=== PATIENT | female | born 1970 | race Caucasian/White ===

== ENCOUNTER → 2017-01-14 | Day surgery (SDC) | payer OTHER ==
[~2017-01-14] MED LIST: LACTATED RINGER'S 1000 ML INJ 1,000 ML ONE; LEVO50TA4 PO; LEVO75TA3 PO; PROM1SUP7 RECTAL; PROPOFOL 200 MG/20 ML AMP IV ONE
--- NOTE | 2017-01-14 07:58 | GIPROC ---
[facility] [address] [facility], [id number] EGD PROCEDURE REPORT EXAM DATE: 01/14/2017 PATIENT NAME: Josie Workman MR #: [id number] BIRTHDATE: 1970 ATTENDING: Alvaro Dos Santos MD ORDER #: [id number] [employer] MATERIAL INSPECTOR: none STATUS: outpatient INDICATIONS: The patient is a 46 yr old female here for an EGD due to heartburn PROCEDURE PERFORMED: EGD w/ biopsy MEDICATIONS: None and Per Anesthesia. TOPICAL ANESTHETIC: none CONSENT: The patient understands the risks and benefits of the procedure and understands that these risks include, but are not limited to: sedation, allergic reaction, infection, perforation and/or bleeding. Alternative means of evaluation and treatment include, among others: physical exam, x-rays, and/or surgical intervention. The patient elects to proceed with this endoscopic procedure. medical equipment was checked for proper function. Hand hygiene and appropriate measures for infection prevention was taken. After the risks, benefits and alternatives of the procedure were thoroughly explained, Informed consent was verified, confirmed and timeout was successfully executed by the treatment team. The patient was anesthetized with topical anesthesia and the EG-[id number] ([id number]) endoscope was introduced through the mouth and advanced to the second portion of the duodenum. Retroflexed views revealed small hiatal hernia and Retroflexed views revealed The gastroscope was then slowly withdrawn and removed. Mild esoghagitis, small hiatal hernia. Small hiatal hernia. Esophagitis. ADVERSE EVENTS: There were no complications. IMPRESSIONS: 1. Mild esoghagitis, small hiatal hernia 2. Small hiatal hernia RECOMMENDATIONS: Start PPI PATIENT CONDITION: fair DISPOSITION: Home REPEAT EXAM: NONE Alvaro Dos Santos MD eSigned: Alvaro Dos Santos MD 01/14/2017 7:57 AM cc: Ahmet Hinson M.D.
== END | disposition home or self-care (01) ==
LOC: ESDC 06:55
PROVIDERS: ATTEND Surgery
DX: R12 Heartburn (principal); K20.9 Esophagitis, unspecified; K44.9 Diaphragmatic hernia without obstruction or gangrene
CPT/HCPCS: 00740; 43239; 88305; 88312; J3010; J7120

== ENCOUNTER 2017-03-26 13:10 | Inpatient (IN) | payer OTHER ==
[~2017-03-26] VITALS: Ht 160 cm; Wt 105.0 kg
[~2017-03-26 13:10] MED LIST changes: -LACTATED RINGER'S 1000 ML INJ 1,000 ML ONE; -LEVO50TA4 PO; -PROM1SUP7 RECTAL; -PROPOFOL 200 MG/20 ML AMP IV ONE
[2017-03-29] MEDS ORDERED: APREPITANT 40 MG CAP PO SCH (05:45)
[2017-03-29] MEDS ORDERED: METOPROLOL TARTRATE 25 MG TAB PO PRN (05:45)
[2017-03-29] MEDS ORDERED: LACTATED RINGER'S 1000 ML IV PRN (05:45)
[2017-03-29] MEDS ORDERED: ceFAZolin 2 GM PREMIX 50 ML IV SCH (05:45)
[2017-03-29] MEDS ORDERED: CHLORHEXIDINE GLUCONATE 2 % 1 PACK (2 CLOTHS) TOPICAL PRN (05:45)
[2017-03-29] MEDS ORDERED: SODIUM CHLORID 0.9% 500 ML IV PRN (05:45)
[2017-03-29] MEDS ORDERED: SCOPOLAMINE 1.5 MG PATCH T-DERMAL SCH (05:45)
[2017-03-29] MEDS ORDERED: POVIDONE IODINE 5% (ANTISEPSIS KIT) 4 APPLICATIONS EACH NARE PRN (05:45)
[2017-03-29] MEDS ORDERED: ONDANSETRON HCL 4 MG/2 ML VIAL IV PUSH SCH (05:45)
[2017-03-29] MEDS ORDERED: metroNIDAZOLE 500 MG INJ 100 ML IV SCH (05:45)
[2017-03-29] MEDS ORDERED: INSULIN HUMAN REGULAR 1,000 UNITS/10 ML VIAL SQ PRN (05:45)
[2017-03-29] MEDS ORDERED: ACETAMINOPHEN 1000 MG/100 ML VIAL IV SCH (05:45)
[2017-03-29 06:09] VITALS: BP 127/67; PULSE 57; RESP 20; TEMP 98.2; O2SAT 97
[2017-03-29] MEDS ORDERED: BUPIVACAINE/EPINEPHRINE 0.25% 50 ML VIAL ONE (06:43)
[2017-03-29] MEDS ORDERED: FAMOTIDINE 20 MG/2 ML VIAL ONE (07:06)
[2017-03-29] MEDS ORDERED: DEXAMETHASONE SOD PHOS 4 MG/ML VIAL ONE (07:06)
[2017-03-29] MEDS ORDERED: MIDAZOLAM HCL 2 MG/2 ML VIAL ONE (07:06)
[2017-03-29] MEDS ORDERED: KETAMINE HCL 500 MG/5 ML VIAL ONE (07:15)
[2017-03-29] MEDS ORDERED: METHYLENE BLUE 100 MG/10 ML VIAL NG ONE (08:24)
[2017-03-29] MEDS ORDERED: Post-op Orders (for Pharmacy) MISC OTHER ONE (09:15)
[2017-03-29] MEDS ORDERED: SODIUM CHLORIDE 0.9% FLUSH 10 ML FLUSH PRN (09:15)
[2017-03-29] MEDS ORDERED: MORPHINE SULFATE 30 MG/30 ML PCA IV SCH (09:15)
[2017-03-29] MEDS ORDERED: NALOXONE HCL 0.4 MG/ML AMP IV PRN (09:15)
[2017-03-29] MEDS ORDERED: DO NOT ADM ANY ANTICOAGULANT DRUGS PRN (09:23)
[2017-03-29] MEDS ORDERED: fentaNYL CITRATE 250 MCG/5 ML AMP ONE (09:32)
[2017-03-29] MEDS ORDERED: *morphine SULFATE 8 MG/ML PERIprocedure ONLY ONE ×2 (09:46→10:06)
[2017-03-29] MEDS: D5-1/2 NS + KCL 20 MEQ INJ 1,000 ML IV SCH ×2 (10:00→18:00)
[2017-03-29] MEDS ORDERED: diphenhydrAMINE HCL ELIXIR 12.5 MG/5 ML CUP PO PRN (10:00)
[2017-03-29] MEDS ORDERED: diphenhydrAMINE HCL 50 MG/ML VIAL IV PRN (10:00)
[2017-03-29] MEDS ORDERED: ACETAMINOPHEN 325MG/HYDROcodone 7.5MG/15ML UDC PO PRN ×2 (10:00)
[2017-03-29] MEDS ORDERED: ENALAPRILAT 1.25 MG/ML VIAL IV PUSH PRN (10:00)
--- NOTE | 2017-03-29 10:07 | MP ---
cc: VINCE MONK DATE OF SURGERY: 03/29/2017 1970 PREOPERATIVE DIAGNOSIS Morbid obesity with BMI of 40. POSTOPERATIVE DIAGNOSIS Morbid obesity with BMI of 40, complicated by hiatal hernia. PROCEDURE 1. Laparoscopic vertical sleeve gastrectomy over a 36-Omani ViSiGi bougie. 2. Laparoscopic hiatal hernia repair. SURGEON Vince Monk MD SOLAR SYSTEM INSTALLER MD Dr Levon Cevallos assistance was necessary for this case due to the the complexity of the procedure. Dr. Dos Santos was necessary for manipulation and exposure during the procedure. The assistant manager quality management provided by [employer] on the back table and to control the camera. ANESTHESIA General endotracheal anesthesia. ESTIMATED BLOOD LOSS Scant. FINDINGS Fatty liver and moderate-sized hiatal hernia. SPECIMENS None. COMPLICATIONS None. PROCEDURE IN DETAIL The patient was brought to the operating room and placed on the operating table in supine position, bilateral sequential inflation device placed on lower extremities. General anesthesia was instituted. Antibiotics was initiated. The abdomen was prepped and draped sterilely. A point 15 cm distal to the xiphoid in the midline was anesthetized with 0.25% Marcaine with epinephrine. A skin incision was made, 5-mm OptiView port placed under direct vision and pneumoperitoneum created. Under direct vision, three 5-mm left upper quadrant, a 15-mm right upper quadrant, 5-mm right upper quadrant ports placed. Prior to placement of all ports the skin and peritoneum were anesthetized with 0.25% Marcaine with epinephrine. The patient was placed in reverse Trendelenburg position left side up, the [place]ia-Flex retractor was placed. The left lobe of the liver was retracted. The vasculature along the greater curvature of the stomach was using harmonic scalpel starting a distance 5-cm proximal to the pylorus and carried towards the angle of His. The angle of His was taken down bluntly. Posterior ligamentous attachments were sharply . A 36-Omani ViSiGi bougie was placed at the start of the case, was placed on suction. The crura was dissected anteriorly taking down the angle of His during the dissection; there was a moderate-sized hiatal hernia, the GE junction was mobilized into the abdominal cavity excising the hernia sac. The crura of the diaphragm was approximated with 0-Silk suture in a [id number] manner. Division of the stomach started 5 cm proximal to the pylorus and carried towards the angle of His to completely excise approximately 80% of the stomach. This was performed using an [place] Flex stapler at the pylorus. The first firing was with a black load, followed by a green load and two gold loads. All staple loads were reinforced with SeamGuard. A distance of 2 cm was left from the angle incisura and the staple line and a distance of 1 cm left from the GE junction and the staple line. The pylorus was then occluded, methylene blue tinged saline was instilled. There was no evidence of extravasation. The gastrocolic ligament was then sutured to the posterior leaflet of the SeamGuard using a 2-0 Vicryl suture in a running manner. Bleeding points were controlled with Evicel. The excised stomach was removed from the peritoneal cavity through the 15-mm port site in an Endopouch. The fascia at the 15-mm port site was approximated with 0 Vicryl suture. The CO2 was then released, all ports were removed, all skin incisions closed with 4-0 Monocryl. The abdominal wall was cleaned. A sterile dressing was placed. The patient was awakened and taken to the recovery room. MD HERI Gonsales/RASHEEDA /9:23 AM /9:52 AM KRIS
[2017-03-29] MEDS: METOCLOPRAMIDE HCL 10 MG/2 ML VIAL IV PUSH SCH ×3 (10:12→22:47)
[2017-03-29] MEDS: ENOXAPARIN SODIUM 40 MG/0.4 ML SYRINGE SQ SCH (14:00)
[2017-03-29] MEDS: PCA - TOTAL MG MORPHINE DELIVERED PER SHIFT SCH ×2 (14:00→22:00)
[2017-03-29] MEDS: metroNIDAZOLE 500 MG INJ 100 ML IV SCH ×2 (14:53→22:54)
[2017-03-29] MEDS ORDERED: PROPOFOL 200 MG/20 ML AMP IV ONE (15:10)
[2017-03-29] MEDS ORDERED: PHENYLEPH/NS 1000 MCG/10 ML SYR IV ONE (15:11)
[2017-03-29] MEDS ORDERED: ePHEDrine/NS 25 MG/5 ML SYR IV ONE (15:11)
[2017-03-29] MEDS ORDERED: NEOSTIGMINE 3 MG/3 ML SYR IV ONE (15:11)
[2017-03-29] MEDS ORDERED: ONDANSETRON HCL 4 MG/2 ML VIAL IV PUSH ONE (15:12)
[2017-03-29] MEDS ORDERED: LACTATED RINGER'S 1000 ML INJ 1,000 ML IV ONE (15:12)
[2017-03-29 15:57] VITALS: O2SAT 98
[2017-03-29] MEDS: RESP: ALBUTEROL 2.5 MG/3 ML NEB (SCH) INH ×3 (15:57→23:28)
[2017-03-29 17:01] VITALS: BP 117/71; PULSE 66; RESP 18; TEMP 97.6; O2SAT 99
[2017-03-29 20:00] VITALS: BP 112/58; PULSE 59; RESP 16; TEMP 97.1; O2SAT 97
[2017-03-29] MEDS: SODIUM CHLORIDE 0.9% FLUSH 10 ML FLUSH IV FLUSH SCH (21:00)
[2017-03-30] VITALS: BP 118/58; PULSE 59; RESP 16; TEMP 97.7; O2SAT 95
[2017-03-30] MEDS: RESP: ALBUTEROL 2.5 MG/3 ML NEB (SCH) INH ×6 (03:37→23:19)
[2017-03-30 05:20] LABS: AUTOMATED NEUTROPHIL # 10.2 TH/MM3 (1.8-7.7); BASOPHIL % 0.2 % (0.0-2.0); HEMATOCRIT 33.8 % (35.0-46.0); HEMO FLAGS DIFF FINAL; LYMPH % 15.7 % (9.0-44.0); LYMPHOCYTE # 2.1 TH/MM3 (1.0-4.8); MEAN CELL VOLUME 85.1 FL (80.0-100.0); MEAN CORPUSCULAR HEMOGLOBIN 27.9 PG (27.0-34.0); MEAN CORPUSCULAR HGB CONC 32.8 % (32.0-36.0); NEUT % 76.1 % (16.0-70.0); PLATELET COUNT 265 TH/MM3 (150-450); RED BLOOD COUNT 3.97 MIL/MM3 (4.00-5.30); RED CELL DISTRIBUTION WIDTH 14.3 % (11.6-17.2); WHITE BLOOD COUNT 13.4 TH/MM3 (4.0-11.0)
[2017-03-30] MEDS: METOCLOPRAMIDE HCL 10 MG/2 ML VIAL IV PUSH SCH (05:28)
[2017-03-30] MEDS: PCA - TOTAL MG MORPHINE DELIVERED PER SHIFT SCH ×2 (05:33→14:00)
[2017-03-30] MEDS: LEVOTHYROXINE SODIUM 75 MCG TAB PO SCH (05:33)
[2017-03-30] MEDS: D5-1/2 NS + KCL 20 MEQ INJ 1,000 ML IV SCH ×3 (05:36→17:30)
[2017-03-30] MEDS: metroNIDAZOLE 500 MG INJ 100 ML IV SCH (05:37)
[2017-03-30 05:39] LABS: BICARBONATE 28.1 MEQ/L (21.0-32.0); MAGNESIUM 1.8 MG/DL (1.5-2.5); POTASSIUM 3.8 MEQ/L (3.5-5.1)
[2017-03-30 08:00] VITALS: BP 121/65; PULSE 64; RESP 19; TEMP 98.3; O2SAT 98
[2017-03-30] MEDS: PANTOPRAZOLE SOD 40 MG DELAYED RELEASE TAB PO SCH (08:06)
[2017-03-30] MEDS: ONDANSETRON HCL 4 MG/2 ML VIAL IV PRN ×3 (08:10→21:55)
[2017-03-30] MEDS: SODIUM CHLORIDE 0.9% FLUSH 10 ML FLUSH IV FLUSH SCH ×2 (08:11→21:00)
--- NOTE | 2017-03-30 11:43 | HHI.PR ---
Subjective Subjective Notes 46yo female POD#1 VSG. Sitting up in chair. Complains of some nausea relieved with meds. Tolerating fluids. No other GI complaints. Objective Vitals/I&O Vital Signs Date Time Temp Pulse Resp B/P Pulse Ox O2 Delivery O2 Flow Rate FiO2 03/30/17 08:15 21 03/30/17 08:00 98.3 64 19 121/65 98 03/29/17 13:45 Nasal Cannula 2 Labs Laboratory Tests Test 03/30/17 04:00 White Blood Count 13.4 Red Blood Count 3.97 Hemoglobin 11.1 Hematocrit 33.8 Mean Corpuscular Volume 85.1 Mean Corpuscular Hemoglobin 27.9 Mean Corpuscular Hemoglobin 32.8 Concent Red Cell Distribution Width 14.3 Platelet Count 265 Mean Platelet Volume 10.3 Neutrophils (%) (Auto) 76.1 Lymphocytes (%) (Auto) 15.7 Monocytes (%) (Auto) 8.0 Eosinophils (%) (Auto) 0.0 Basophils (%) (Auto) 0.2 Neutrophils # (Auto) 10.2 Lymphocytes # (Auto) 2.1 Monocytes # (Auto) 1.1 Eosinophils # (Auto) 0.0 Basophils # (Auto) 0.0 CBC Comment DIFF FINAL Differential Comment Sodium Level 140 Potassium Level 3.8 Chloride Level 105 Carbon Dioxide Level 28.1 Anion Gap 7 Blood Urea Nitrogen 6 Creatinine 0.65 Estimat Glomerular Filtration 99 Rate Random Glucose 134 Calcium Level 8.3 Magnesium Level 1.8 Cardiovascular: Regular Lungs: Clear Abdomen: Post-op tenderness Extremities: Perfused Wound Wound : Wound Location: Abdomen Appearance: Clean & Dry A/P Assessment and Plan Continue to increase fluids as tolerated Continue with frequent ambulation The exam, history, and the medical decision-making described in the above note were completed with the assistance of the mid-level provider. I reviewed and agree with the findings presented. I attest that I had a [id number] encounter with the patient on the same day, and personally performed and documented my assessment and findings in the medical record. Discharge Planning D/C home later today Heavenly Ellis Mar 30, 2017 11:43 Ahmet Hinson MD Apr 20, 2017 11:13
[2017-03-30] MEDS ORDERED: PROM1SUP7 RECTAL (11:45)
[2017-03-30] MEDS ORDERED: POLYETHYLENE GLYCOL 17 GM PKG PO ONE (11:45)
[2017-03-30 12:00] VITALS: BP 114/61; PULSE 57; RESP 19; TEMP 98.3; O2SAT 100
[2017-03-30] MEDS ORDERED: METOCLOPRAMIDE HCL 10 MG/2 ML VIAL IV PUSH PRN (12:00)
[2017-03-30] MEDS: ENOXAPARIN SODIUM 40 MG/0.4 ML SYRINGE SQ SCH (14:07)
[2017-03-30 16:00] VITALS: BP 112/78; PULSE 70; RESP 17; TEMP 98.9; O2SAT 100
[2017-03-30 20:00] VITALS: BP 128/62; PULSE 79; RESP 18; TEMP 98; O2SAT 97
[2017-03-30 20:26] VITALS: O2SAT 97
[2017-03-31] VITALS: BP 113/59; PULSE 80; RESP 17; TEMP 98.9; O2SAT 97
[2017-03-31] MEDS: D5-1/2 NS + KCL 20 MEQ INJ 1,000 ML IV SCH ×2 (01:12→10:00)
[2017-03-31] MEDS: RESP: ALBUTEROL 2.5 MG/3 ML NEB (SCH) INH ×2 (02:59→07:27)
[2017-03-31] MEDS: LEVOTHYROXINE SODIUM 75 MCG TAB PO SCH (05:42)
[2017-03-31 07:27] VITALS: O2SAT 96
[2017-03-31] MEDS: PANTOPRAZOLE SOD 40 MG DELAYED RELEASE TAB PO SCH (07:59)
[2017-03-31] MEDS: SODIUM CHLORIDE 0.9% FLUSH 10 ML FLUSH IV FLUSH SCH (07:59)
[2017-03-31 08:00] VITALS: BP 119/64; PULSE 64; RESP 19; TEMP 97.1; O2SAT 96
--- NOTE | 2017-03-31 11:56 | HHI.PR ---
Subjective Subjective Notes POD#2 VSG She had worsening nausea with vomiting later yesterday which caused her to stay overnight for observation. She reports feeling better and verbalizes relief with current regimen. No more instances of vomiting. She is tolerating fluids and passing flatus Objective Vitals/I&O Vital Signs Date Time Temp Pulse Resp B/P Pulse Ox O2 Delivery O2 Flow Rate FiO2 03/31/17 08:00 97.1 64 19 119/64 96 03/31/17 07:27 21 03/29/17 13:45 Nasal Cannula 2 Cardiovascular: Regular Lungs: Clear Abdomen: Post-op tenderness Extremities: Perfused Wound Wound : Wound Location: Abdomen Appearance: Clean & Dry A/P Assessment and Plan Continue to increase fluids as tolerated Continue with frequent ambulation Phenergan for nausea The exam, history, and the medical decision-making described in the above note were completed with the assistance of the mid-level provider. I reviewed and agree with the findings presented. I attest that I had a [id number] encounter with the patient on the same day, and personally performed and documented my assessment and findings in the medical record. Discharge Planning D/C home today Heavenly Ellis Mar 31, 2017 11:56 Ahmet Hinson MD Apr 20, 2017 11:14
== END 2017-03-31 12:10 | disposition home or self-care (01) | DRG 621 ==
LOC: HSDI 03-29 05:18 → N07B 03-29 14:14
PROVIDERS: ADMIT Surgery; ATTEND Surgery
PROC: 0BQS4ZZ (ICD-10-PCS; 2017-03-29)
PROC: 0BQR4ZZ (ICD-10-PCS; 2017-03-29)
PROC: 0DB64Z3 Excision of Stomach, Percutaneous Endoscopic Approach, Vertical (ICD-10-PCS; principal; 2017-03-29 07:32)
DX: E66.01 Morbid (severe) obesity due to excess calories (principal); K76.0 Fatty (change of) liver, not elsewhere classified; K44.9 Diaphragmatic hernia without obstruction or gangrene; Z68.41 Body mass index [BMI] 40.0-44.9, adult; E03.9 Hypothyroidism, unspecified; R11.2 Nausea with vomiting, unspecified
CPT/HCPCS: 80048; 83735; 85025; 94150; 94640; 94664; J0131; J0690; J1100; J1650; J2250; J2270; J2370; J2405; J2710; J2765; J3010; J3480; J7120; J7613; J8501